=== PATIENT | female | born 1950 | race Caucasian/White ===

== ENCOUNTER 2017-11-18 18:35 | Inpatient (IN) ==
[2017-11-18 20:12] LABS: Basophils % 0.7 % (0.0-0.8); Eosinophils % 0.5 % (0.00-10.9); Hematocrit 40.1 VOL% (35.7-47.0); Hemoglobin 12.9 GM/DL (12.0-16.0); Immature Granulocytes % 0.5 %; Immature Granulocytes Absolute 0.03 #; Lymphocytes # 0.8 10*3/uL (1.4-4.0); Lymphocytes % 14.5 % (21.3-54.2); Mean Corpuscular HGB Conc 32.2 GM/DL (32-36); Mean Corpuscular Hemoglobin 30 PG (27-34); Mean Corpuscular Volume 91.8 FL (87-102); Mean Platelet Volume 10.6 FL (9.6-12.0); Monocytes # 0.6 10*3/uL (0.11-0.8); Monocytes % 11.3 % (1.7-12.7); Neutrophils % 72.5 % (38.7-73.9); Platelet Count 157 T/CUMM (130-400); Red Blood Count 4.37 MC/CUMM (3.8-5.5); Red Cell Distribution Width 12.9 % (9.3-17.3); White Blood Count 5.5 T/CUMM (4-12)
[2017-11-18 20:42] LABS: Albumin 3.8 G/DL (3.4-5.0); Bilirubin,Total 0.4 MG/DL (0.2-1.0); Calcium 8.6 MG/DL (8.5-10.1); Osmolality,Calculated 286.8 MOS/KG (273-304); Total Protein 7.2 G/DL (6.4-8.3)
[2017-11-18 21:02] LABS: Apearance,Urine CLEAR (Clear); Bilirubin,Urine Negative (Negative); Blood, Urine Negative (Negative); Glucose,Urine (UA) Negative (Negative); Ketones,Urine Negative (Negative); Mucus,Urine Occasional /LPF (Occasional); Nitrite,Urine Negative (Negative); Protein,Urine Negative; RBC,Urine 1 /HPF (0-4); Urine Color Yellow (Yellow); Urine Specific Gravity 1.021 (1.001-1.035); Urine Urobilinogen < 2.0 EU/DL (0.2-1.0); WBC,Urine 1 /HPF (0-6)
[2017-11-18 21:36] LABS: Free T4 (Free Thyroxine) 0.85 NG/DL (0.76-1.46); Thyroid Stimulating Hormone 0.578 uIU/ml (0.358-3.74)
[2017-11-18] MEDS ORDERED: hydrALAZINE 20 MG/1 ML VIAL IV PRN (22:56)
[2017-11-18] MEDS ORDERED: ALBUTEROL/IPRATROPIUM 3 ML NEB RESP TX PRN (22:58)
[2017-11-19 01:44] LABS: Risk Ratio 5.3
[2017-11-19] MEDS: ASPIRIN EC 81 MG TABLET PO SCH (10:05)
[2017-11-19] MEDS ORDERED: guaiFENesin 200 MG/10 ML UDCUP PO PRN (12:27)
[2017-11-19] MEDS ORDERED: LEVOFLOXACIN INJ 500 MG in PREMIX 1 EACH IV SCH (18:00)
[2017-11-19] MEDS ORDERED: QUEtiapine 100 MG TABLET PO SCH (21:00)
[2017-11-19] MEDS ORDERED: ATORVASTATIN 40 MG TABLET PO SCH (21:00)
[2017-11-19] MEDS: DONEPEZIL 10 MG TABLET PO SCH (21:06)
[2017-11-20] MEDS ORDERED: NON-FORMULARY MEDICATION (Garlic [Garlic] 1,000 MG) PO SCH (09:00)
[2017-11-20] MEDS: ASPIRIN EC 81 MG TABLET PO SCH (10:20)
[2017-11-20] MEDS: GARLIC 1000 MG PO SCH (10:21)
[2017-11-20] MEDS: LOSARTAN 50 MG TABLET PO SCH (10:28)
[2017-11-20] MEDS: CARVEDILOL 6.25 MG TABLET PO SCH (10:28)
[2017-11-20] MEDS ORDERED: PHENOL 1.4% THROAT SPRAY 177 ML BOTTLE PO PRN (13:03)
[2017-11-20] MEDS ORDERED: LORazepam 2 MG/1 ML VIAL IV ONE (14:03)
[2017-11-20] MEDS: DONEPEZIL 10 MG TABLET PO SCH (20:27)
[2017-11-20] MEDS: QUEtiapine 25 MG TABLET PO SCH (20:29)
[2017-11-21] MEDS: LOSARTAN 50 MG TABLET PO SCH (09:25)
[2017-11-21] MEDS: ASPIRIN EC 81 MG TABLET PO SCH (09:25)
[2017-11-21] MEDS: CARVEDILOL 6.25 MG TABLET PO SCH (09:25)
[2017-11-21] MEDS: GARLIC 1000 MG PO SCH (09:25)
[2017-11-21 10:29] LABS: Basophils % 0.5 % (0.0-0.8); Hematocrit 39.7 VOL% (35.7-47.0); Hemoglobin 12.6 GM/DL (12.0-16.0); Immature Granulocytes % 0.3 %; Immature Granulocytes Absolute 0.01 #; Lymphocytes # 1.4 10*3/uL (1.4-4.0); Lymphocytes % 37.3 % (21.3-54.2); Mean Corpuscular HGB Conc 31.7 GM/DL (32-36); Mean Corpuscular Hemoglobin 29 PG (27-34); Mean Corpuscular Volume 92.3 FL (87-102); Mean Platelet Volume 10.9 FL (9.6-12.0); Monocytes # 0.4 10*3/uL (0.11-0.8); Monocytes % 11.6 % (1.7-12.7); Neutrophils # 1.9 10*3/uL (1.4-7.4); Neutrophils % 50.3 % (38.7-73.9); Platelet Count 143 T/CUMM (130-400); Red Cell Distribution Width 13.5 % (9.3-17.3); White Blood Count 3.8 T/CUMM (4-12)
[2017-11-21 10:53] LABS: Calcium 8.4 MG/DL (8.5-10.1); Osmolality,Calculated 282.4 MOS/KG (273-304); Potassium 3.6 MMOL/L (3.5-5.1)
[2017-11-21 11:05] LABS: Folate 21.8 NG/ML (5.4-24.0)
[2017-11-21 12:34] LABS: Amorphous Crystals,Urine Few /HPF (Few); Apearance,Urine CLOUDY (Clear); Bilirubin,Urine Negative (Negative); Blood, Urine Negative (Negative); Glucose,Urine (UA) Negative (Negative); Ketones,Urine 5 mg/dL (Negative); Mucus,Urine Few /LPF (Occasional); Nitrite,Urine Negative (Negative); Protein,Urine Negative; Urine Color Amber (Yellow); Urine Specific Gravity 1.021 (1.001-1.035)
[2017-11-21 12:43] LABS: Barbiturates Screen,Urine Negative (Negative); Benzodiazepines Screen,Urine Negative (Negative); Cannabinoid Screen,Urine Negative (Negative); Opiate Screen,Urine Negative (Negative); Phencyclidine Screen,Urine Negative (Negative)
[2017-11-21] MEDS: QUEtiapine 25 MG TABLET PO SCH (20:47)
[2017-11-21] MEDS: DONEPEZIL 10 MG TABLET PO SCH (20:48)
[2017-11-22] MEDS: CARVEDILOL 6.25 MG TABLET PO SCH (09:29)
[2017-11-22] MEDS: ASPIRIN EC 81 MG TABLET PO SCH (09:29)
[2017-11-22] MEDS: LOSARTAN 50 MG TABLET PO SCH (09:29)
[2017-11-22] MEDS: GARLIC 1000 MG PO SCH (09:31)
[2017-11-22 12:12] VITALS: BP 105/51
== END 2017-11-22 14:45 | disposition home or self-care (01) | DRG 57 ==
LOC: N.ED 18:35 → N.4E 22:06
PROVIDERS: ADMIT Internal Medicine Geriatric Medicine; ATTEND Internal Medicine Geriatric Medicine